=== PATIENT | male | born 1955 | race Caucasian/White ===

== ENCOUNTER 2023-07-19 14:33 | Emergency (ER) | payer OTHER, SELFPAY ==
[2023-07-19 14:43] VITALS: BP 172/92; PULSE 104; RESP 16; TEMP 36.7; O2SAT 97
--- NOTE | 2023-07-19 15:12 | ED.GENADULT ---
HPI - General Adult General Chief complaint: Upper Respiratory Infection Stated complaint: Sore throat Source: patient Mode of arrival: ambulatory Limitations: no limitations History of Present Illness HPI narrative: Patient presents for evaluation of sore throat for the past few days. He has associated nausea without vomiting. No fever, chills, cough, shortness of breath, diarrhea. He spent time with his grandkids recently and they have strep pharyngitis. He does not smoke. He is diabetic. Home blood sugars in 200's. Related Data Home Medications Medication Instructions Recorded Confirmed albuterol sulfate 90 mcg/actuation inhalation 07/19/23 aerosol inhaler duloxetine 30 mg capsule,delayed mg PO 07/19/23 release gabapentin 100 mg capsule mg 07/19/23 glipizide 10 mg tablet mg 07/19/23 metformin 1,000 mg tablet mg 07/19/23 metoprolol tartrate 50 mg tablet mg 07/19/23 rivaroxaban 20 mg tablet (Xarelto) mg 07/19/23 sitagliptin phosphate 100 mg mg 07/19/23 tablet (Januvia) sucralfate 1 gram tablet 07/19/23 Allergies Allergy/AdvReac Type Severity Reaction Status Date / Time Penicillins Allergy Severe Swelling Verified 07/19/23 14:56 Sulfa (Sulfonamide Allergy Severe swelling Verified 07/19/23 14:56 Antibiotics) Review of Systems Review of Systems: CONSTITUTIONAL: Denies fever, chills, or sweats. EYES: Denies visual changes, redness, or discharge. ENT: Reports sore throat. Denies rhinorrhea, congestion, or otalgia. CARDIOVASCULAR: Denies chest pain, palpitations, or edema. RESPIRATORY: Denies cough or dyspnea. GASTROINTESTINAL: Reports nausea. Denies abdominal pain,vomiting, or diarrhea. GENITOURINARY: Denies dysuria or hematuria. SKIN: Denies rash or itching. MUSCULOSKELETAL: Denies back pain, joint pain, or myalgia. NEUROLOGIC: Denies headache, numbness, dizziness, or weakness. PSYCHIATRIC: Denies anxiety or depression. [facility] Past Medical History Medical History Diabetes Surgical History Surgical History History of cholecystectomy Family History Family History Mother Family history non-contributory Social History Social History Living arrangements: with family Gender identity (if verbalized by the patient): Male Sexual Orientation (if Verbalized by the Patient): Straight or Heterosexual Spiritual care concerns: No Exam Narrative: GENERAL: Well-appearing, well-nourished, and in no acute distress. HEAD: Normocephalic, atraumatic. EYES: PERRLA and EOMI. ENT: Nares clear, no rhinorrhea or epistaxis. Mucous membranes moist. Posterior pharyngeal erythema without exudate. Uvula is midline. Bilateral TMs pearly camejo nonbulging NECK: Supple. No adenopathy or masses. No carotid bruits or JVD CHEST: Clear to auscultation. No respiratory distress. No wheezes rales or rhonchi HEART: Regular rate and rhythm. No murmur heard. Normal peripheral pulses. ABDOMEN: Soft, nontender, nondistended, normal active bowel sounds. EXTREMITIES: Normal range of motion. No edema. SKIN: Warm, dry, no rash. NEURO: No focal deficits. Alert and oriented x3. PSYCH: Normal mood and affect. Course Course Emergency Course: This is a 68-year-old male who presented for evaluation of sore throat after recent strep exposures. Through shared decision making, we opted to proceed with treatment based on exposure. Will tx with cephalexin due to PCN allergy. [id number] agents for symptom management. Increase hydration. Follow up with primary provider. To the ER for worsening symptoms. Patient in agreement with plan of care. Level of Care: Express Care Visit Discharge Plan Discharge Clinical Impression: Exposure to strep throat, Pharyngitis
== END 2023-07-19 15:25 | disposition home or self-care (01) ==
PROVIDERS: Emergency Provider Nurse Practitioner; PCP Hospitalist
DX: J02.9 Acute pharyngitis, unspecified (principal); E11.9 Type 2 diabetes mellitus without complications; Z79.899 Other long term (current) drug therapy; Z79.84 Long term (current) use of oral hypoglycemic drugs; Z79.01 Long term (current) use of anticoagulants
CPT/HCPCS: 87081; 87880; 99203; G0463